=== PATIENT | female | born 1965 | race Caucasian/White ===

== ENCOUNTER 2016-09-13 13:33 | Emergency (ER) | payer MEDICAID ==
[~2016-09-13] VITALS: Ht 154.9 cm; Wt 68.0 kg
[~2016-09-13 13:33] MED LIST: AMARYL2 MG PO; ASPIR 8181 MG PO; ATORVASTATIN CA40 M1 PO; BG MC; CEL20 PO; CIPRO500 MG PO; COL100 PO; DUL5 PO; GLIPIZIDE10 MG PO; GLIPIZIDE5 MG PO; GLU500 PO; GLUCOTROL5 MG PO; KEFLEX250 MG PO; LAC PO; LANTUS SOLOS100 U/M1 SQ; LEVEMIR100 U/M1 SQ; LEVOTHYROXIN0.075 M2 PO; MAC100 PO; METFORMIN HCL1000 MG PO; METFORMIN500 M1 PO; METFORMIN850 M1 PO; NORCO1 TA2 PO; OMEPRAZOLE DR20 M1 PO; PERCOCET1 TA2 PO; PRILOSEC20 MG PO; PROTONIX40 MG PO; PROTONIX40 MG/Pac1 PO; REG5 PO; SYN5 PO; SYNTHROID0.05 MG PO; THERAGRAN-M1 TA4 PO; TYLENOL ARTHRI650 MG PO; UNKNOWN THYROID MED; VITAMIN D50000 I4 PO; ZES10 PO; ZESTRIL5 MG PO; ZOFRAN ODT8 MG PO; [UNRECOGNIZED DRUG - REMARK]
[2016-09-13 16:49] VITALS: BP 129/72
== END 2016-09-13 16:49 | disposition home or self-care (01) ==
LOC: ED 13:33
DX: J02.0 Streptococcal pharyngitis (principal); I10 Essential (primary) hypertension; E11.9 Type 2 diabetes mellitus without complications; E03.9 Hypothyroidism, unspecified; Z79.84 Long term (current) use of oral hypoglycemic drugs; Z79.899 Other long term (current) drug therapy
CPT/HCPCS: J0561; J1885

== ENCOUNTER 2016-12-08 08:42 | Emergency (ER) | payer MEDICAID ==
[~2016-12-08] VITALS: Ht 157.5 cm; Wt 66.4 kg
[2016-12-08 10:58] VITALS: BP 124/68
== END 2016-12-08 10:58 | disposition home or self-care (01) ==
LOC: ED 08:42
DX: N39.0 Urinary tract infection, site not specified (principal); M54.5 Low back pain; E11.9 Type 2 diabetes mellitus without complications; E78.00 Pure hypercholesterolemia, unspecified; Z79.84 Long term (current) use of oral hypoglycemic drugs
CPT/HCPCS: J1885

== ENCOUNTER 2017-01-16 18:51 | Inpatient (IN) | payer MEDICAID ==
[~2017-01-16] VITALS: Ht 165.1 cm; Wt 62.6 kg
[2017-01-16 19:55] LABS: BASOPHIL % 0.4 % (0-2); PLATELET COUNT 286 x10^3mcL (130-400); RED CELL DISTRIBUTION WIDTH 12.9 % (11.5-14.5)
[2017-01-16 19:58] LABS: CALCIUM 9.2 mg/dL (8.5-10.1); CREATININE SERUM 1.2 mg/dL (0.6-1.0); POTASSIUM SERUM 4.1 mmol/L (3.5-5.1)
[2017-01-16 20:02] LABS: ALBUMIN 3.5 g/dL (3.4-5.0); BILIRUBIN TOTAL 0.88 mg/dL (0.20-1.00); TOTAL PROTEIN, SERUM 7.1 g/dL (6.4-8.2)
[2017-01-16 21:41] LABS: microscopic required? YES; urine erythrocyte TRACE (NEGATIVE)
[2017-01-16 21:50] LABS: AMPHETAMINE QUAL UR NONE DETECTED (NEG <=1000)
[2017-01-16 22:39] VITALS: BP 137/70; BP 96/61
[2017-01-16 22:44] VITALS: BP 137/70
[2017-01-17 00:01] LABS: PHOSPHOROUS 2.7 mg/dL (2.5-4.9)
[2017-01-17 00:03] LABS: CHOLESTEROL/HDL RATIO 1.8
[2017-01-17 00:15] LABS: FREE THYROXINE INDEX 2.8 ug/dL (1.4-4.5); T4(THYROXINE) 7.9 ug/dL (4.7-13.3)
[2017-01-17 01:43] LABS: T3 TOTAL 0.73 ng/mL
[2017-01-17 02:21] LABS: BASOPHIL % 1.8 % (0-2); PLATELET COUNT 257 x10^3mcL (130-400); RED CELL DISTRIBUTION WIDTH 12.9 % (11.5-14.5)
[2017-01-17 03:27] LABS: CALCIUM 8.4 mg/dL (8.5-10.1); CARBON DIOXIDE 25.2 mmol/L (21-32); CHLORIDE SERUM 99 mmol/L (98-107); CREATININE SERUM 0.8 mg/dL (0.6-1.0); GFR1 > 60 mL/min; GLUCOSE SERUM 324 mg/dL (74-106); POTASSIUM SERUM 3.8 mmol/L (3.5-5.1); SODIUM SERUM 134 mmol/L (136-145)
[2017-01-17 05:21] VITALS: BP 140/77
[2017-01-17 09:24] VITALS: BP 106/64
[2017-01-17 11:20] VITALS: Ht 165.1 cm; Wt 62.6 kg
[2017-01-17 13:35] VITALS: BP 129/63
[2017-01-17 17:20] VITALS: BP 128/68
[2017-01-17 20:41] VITALS: BP 139/77
[2017-01-17 20:52] VITALS: BP 91/55
[2017-01-18 06:00] VITALS: BP 133/75
[2017-01-18 06:38] LABS: BASOPHIL % 0.7 % (0-2); PLATELET COUNT 268 x10^3mcL (130-400); RED CELL DISTRIBUTION WIDTH 13.9 % (11.5-14.5)
[2017-01-18 06:48] LABS: CALCIUM 8.5 mg/dL (8.5-10.1); CARBON DIOXIDE 27.3 mmol/L (21-32); CHLORIDE SERUM 106 mmol/L (98-107); CREATININE SERUM 0.6 mg/dL (0.6-1.0); GFR1 > 60 mL/min; GLUCOSE SERUM 83 mg/dL (74-106); POTASSIUM SERUM 3.7 mmol/L (3.5-5.1); SODIUM SERUM 140 mmol/L (136-145)
[2017-01-18 09:00] VITALS: BP 117/69
[2017-01-18] MEDS ORDERED: REG10 PO (09:50)
[2017-01-18 10:06] VITALS: BP 117/69
[2017-01-18] MEDS ORDERED: ACCU-CHEK1 EACH MC (11:12)
[2017-01-18] MEDS ORDERED: BG MC (11:12)
[2017-01-18] MEDS ORDERED: LEVEMIR100 U/M1 SC ×2 (11:12→12:03)
== END 2017-01-18 13:07 | disposition home or self-care (01) | DRG 48 ==
LOC: ED 18:51 → DU 21:13
PROVIDERS: Emergency Medicine; Family Medicine; ADMIT Family Medicine
DX: E11.43 Type 2 diabetes mellitus with diabetic autonomic (poly)neuropathy (principal); N17.0 Acute kidney failure with tubular necrosis; E11.65 Type 2 diabetes mellitus with hyperglycemia; E83.42 Hypomagnesemia; E87.1 Hypo-osmolality and hyponatremia; K31.84 Gastroparesis; N39.0 Urinary tract infection, site not specified; I10 Essential (primary) hypertension; D50.9 Iron deficiency anemia, unspecified; E03.9 Hypothyroidism, unspecified; Z68.23 Body mass index [BMI] 23.0-23.9, adult; Z79.4 Long term (current) use of insulin; Z79.82 Long term (current) use of aspirin
CPT/HCPCS: 82962; 83880; 84439; J1815; J2270; J2405; J3475; J3490; J7030; J8597; Q0092

== ENCOUNTER 2017-01-22 11:21 | Emergency (ER) | payer MEDICAID ==
[~2017-01-22] VITALS: Ht 157.5 cm; Wt 62.1 kg
[~2017-01-22 11:21] MED LIST changes: +ACCU-CHEK1 EACH MC; +LEVEMIR100 U/M1 SC; +REG10 PO
[2017-01-22 12:11] LABS: BASOPHIL % 0.2 % (0-2); PLATELET COUNT 335 x10^3mcL (130-400); RED CELL DISTRIBUTION WIDTH 13.9 % (11.5-14.5)
[2017-01-22 12:21] LABS: CALCIUM 8.5 mg/dL (8.5-10.1); CARBON DIOXIDE 26.9 mmol/L (21-32); CREATININE SERUM 1.3 mg/dL (0.6-1.0); POTASSIUM SERUM 4.5 mmol/L (3.5-5.1)
[2017-01-22 12:27] LABS: ALBUMIN 3.7 g/dL (3.4-5.0); BILIRUBIN TOTAL 1.01 mg/dL (0.20-1.00); TOTAL PROTEIN, SERUM 7.3 g/dL (6.4-8.2)
[2017-01-22 15:42] VITALS: BP 143/79
== END 2017-01-22 15:42 | disposition home or self-care (01) ==
LOC: ED 11:21
PROVIDERS: Emergency Medicine
DX: R10.84 Generalized abdominal pain (principal); E11.9 Type 2 diabetes mellitus without complications; E07.9 Disorder of thyroid, unspecified; E78.00 Pure hypercholesterolemia, unspecified; F32.9 Major depressive disorder, single episode, unspecified; Z90.49 Acquired absence of other specified parts of digestive tract; Z79.84 Long term (current) use of oral hypoglycemic drugs
CPT/HCPCS: J2270; J2405; J7030

== ENCOUNTER 2017-01-26 13:10 | Emergency (ER) | payer MEDICAID ==
[2017-01-26 15:24] LABS: BASOPHIL % 0.5 % (0-2); PLATELET COUNT 377 x10^3mcL (130-400); RED CELL DISTRIBUTION WIDTH 13.9 % (11.5-14.5)
[2017-01-26 15:36] LABS: CALCIUM 9.4 mg/dL (8.5-10.1); CARBON DIOXIDE 28.1 mmol/L (21-32); CREATININE SERUM 1.1 mg/dL (0.6-1.0); POTASSIUM SERUM 4.3 mmol/L (3.5-5.1)
[2017-01-26 15:40] LABS: ALBUMIN 3.9 g/dL (3.4-5.0); BILIRUBIN TOTAL 0.9 mg/dL (0.20-1.00); TOTAL PROTEIN, SERUM 7.6 g/dL (6.4-8.2)
[2017-01-26 15:42] LABS: CHOLESTEROL/HDL RATIO 1.8
[2017-01-26 15:49] LABS: T3 TOTAL 0.86 ng/mL
[2017-01-26 15:54] LABS: FREE T4 1.23 ng/dL (0.76-1.46); FREE THYROXINE INDEX 3.4 ug/dL (1.4-4.5); T4(THYROXINE) 10.1 ug/dL (4.7-13.3)
[2017-01-26 16:12] LABS: UA SPECIFIC GRAVITY <=1.005 (1.005-1.035); microscopic required? YES; urine erythrocyte TRACE (NEGATIVE)
[2017-01-26 17:24] VITALS: BP 167/94
== END 2017-01-26 17:24 | disposition home or self-care (01) ==
LOC: ED 13:10
PROVIDERS: Specialist
DX: R10.13 Epigastric pain (principal); E87.1 Hypo-osmolality and hyponatremia; E78.00 Pure hypercholesterolemia, unspecified; Z90.49 Acquired absence of other specified parts of digestive tract; E11.9 Type 2 diabetes mellitus without complications; Z79.84 Long term (current) use of oral hypoglycemic drugs
CPT/HCPCS: 82962; 83880; 84439; J1170; J2405; J3010; J3490; J7030

== ENCOUNTER 2017-01-28 04:08 | Emergency (ER) | payer MEDICAID ==
[2017-01-28 05:30] VITALS: BP 148/88
== END 2017-01-28 05:30 | disposition home or self-care (01) ==
LOC: ED 04:08
DX: R10.13 Epigastric pain (principal); R11.0 Nausea; E11.9 Type 2 diabetes mellitus without complications; E03.9 Hypothyroidism, unspecified; Z90.49 Acquired absence of other specified parts of digestive tract; Z79.84 Long term (current) use of oral hypoglycemic drugs; Z79.899 Other long term (current) drug therapy
CPT/HCPCS: J2270; Q0162

== ENCOUNTER 2017-03-04 07:20 | Emergency (ER) | payer MEDICAID ==
[~2017-03-04] VITALS: Ht 160 cm; Wt 65.5 kg
[2017-03-04 09:43] LABS: CALCIUM 9.1 mg/dL (8.5-10.1); CARBON DIOXIDE 27.2 mmol/L (21-32); CHLORIDE SERUM 109 mmol/L (98-107); CREATININE SERUM 0.8 mg/dL (0.6-1.0); GFR1 > 60 mL/min; GLUCOSE SERUM 101 mg/dL (74-106); POTASSIUM SERUM 5.1 mmol/L (3.5-5.1); SODIUM SERUM 142 mmol/L (136-145)
[2017-03-04 10:39] VITALS: BP 106/64
== END 2017-03-04 11:12 | disposition home or self-care (01) ==
LOC: ED 07:20
PROVIDERS: Emergency Medicine Emergency Medical Services
DX: R79.9 Abnormal finding of blood chemistry, unspecified (principal); E11.9 Type 2 diabetes mellitus without complications; F32.9 Major depressive disorder, single episode, unspecified; E78.00 Pure hypercholesterolemia, unspecified; Z90.89 Acquired absence of other organs
CPT/HCPCS: 36415

== ENCOUNTER 2017-04-27 16:28 | Emergency (ER) | payer MEDICAID ==
[2017-04-27 19:40] LABS: BASOPHIL % 0.3 % (0-2); PLATELET COUNT 205 x10^3mcL (130-400); RED CELL DISTRIBUTION WIDTH 14.2 % (11.5-14.5)
[2017-04-27 19:59] LABS: ALBUMIN 3.6 g/dL (3.4-5.0); ALKALINE PHOSPHATASE 100 U/L (46-116); ALT/SGPT 58 U/L (14-59); AST/SGOT 25 U/L (15-37); BILIRUBIN TOTAL 0.9 mg/dL (0.20-1.00); CALCIUM 9.5 mg/dL (8.5-10.1); CARBON DIOXIDE 22.4 mmol/L (21-32); CHLORIDE SERUM 106 mmol/L (98-107); GFR1 > 60 mL/min; GLUCOSE SERUM 219 mg/dL (74-106); LIPASE 67 IU/L (73-393); POTASSIUM SERUM 3.5 mmol/L (3.5-5.1); SODIUM SERUM 142 mmol/L (136-145); TOTAL PROTEIN, SERUM 7.6 g/dL (6.4-8.2)
[2017-04-27 21:24] VITALS: BP 194/99
== END 2017-04-27 21:24 | disposition home or self-care (01) ==
LOC: ED 16:28
PROVIDERS: Emergency Medicine
DX: R10.11 Right upper quadrant pain (principal); R11.2 Nausea with vomiting, unspecified; E11.9 Type 2 diabetes mellitus without complications; E78.00 Pure hypercholesterolemia, unspecified; F32.9 Major depressive disorder, single episode, unspecified; I10 Essential (primary) hypertension; Z90.89 Acquired absence of other organs
CPT/HCPCS: J2550; J3010; J7030

== ENCOUNTER 2017-04-28 17:02 | Emergency (ER) | payer MEDICAID ==
[~2017-04-28] VITALS: Ht 162.6 cm; Wt 62.6 kg
[2017-04-28 18:03] VITALS: Ht 162.6 cm; Wt 62.6 kg
[2017-04-28 21:48] VITALS: BP 141/108
== END 2017-04-28 21:48 | disposition home or self-care (01) ==
LOC: ED 17:02
DX: G89.29 Other chronic pain (principal); R10.13 Epigastric pain; R11.10 Vomiting, unspecified; I10 Essential (primary) hypertension; E78.00 Pure hypercholesterolemia, unspecified; E07.9 Disorder of thyroid, unspecified; E11.43 Type 2 diabetes mellitus with diabetic autonomic (poly)neuropathy; K31.84 Gastroparesis; Z90.49 Acquired absence of other specified parts of digestive tract
CPT/HCPCS: Q0162

== ENCOUNTER 2018-03-18 08:46 | Emergency (ER) | payer MEDICAID ==
[~2018-03-18] VITALS: Ht 152.4 cm; Wt 86.8 kg
[2018-03-18 08:55] VITALS: Ht 152.4 cm; Wt 86.8 kg
[2018-03-18 10:55] VITALS: BP 125/76
== END 2018-03-18 10:55 | disposition home or self-care (01) ==
LOC: ED 08:46
DX: J02.0 Streptococcal pharyngitis (principal); I10 Essential (primary) hypertension; E11.9 Type 2 diabetes mellitus without complications; F32.9 Major depressive disorder, single episode, unspecified; E78.00 Pure hypercholesterolemia, unspecified; Z90.49 Acquired absence of other specified parts of digestive tract
CPT/HCPCS: 87804; J0561; J1885

== ENCOUNTER 2018-04-14 13:20 | Emergency (ER) | payer MEDICAID ==
[~2018-04-14] VITALS: Ht 165.1 cm; Wt 85.3 kg
[2018-04-14 13:35] VITALS: Ht 165.1 cm; Wt 85.3 kg
[2018-04-14 16:58] VITALS: BP 105/68
== END 2018-04-14 17:10 | disposition home or self-care (01) ==
LOC: ED 13:20
DX: S92.332A Displaced fracture of third metatarsal bone, left foot, initial encounter for closed fracture (principal); S92.342A Displaced fracture of fourth metatarsal bone, left foot, initial encounter for closed fracture; I10 Essential (primary) hypertension; E11.9 Type 2 diabetes mellitus without complications; E78.00 Pure hypercholesterolemia, unspecified; F32.9 Major depressive disorder, single episode, unspecified; Z90.49 Acquired absence of other specified parts of digestive tract; Z98.890 Other specified postprocedural states; W22.8XXA Striking against or struck by other objects, initial encounter; Y93.89 Activity, other specified; Y92.89 Other specified places as the place of occurrence of the external cause; Y99.8 Other external cause status
CPT/HCPCS: J7040; Q0092

== ENCOUNTER 2018-11-15 19:55 | Emergency (ER) | payer MEDICAID ==
[~2018-11-15] VITALS: Ht 152.4 cm; Wt 92.1 kg
[2018-11-15 20:37] VITALS: Ht 152.4 cm; Wt 92.1 kg
[2018-11-15 21:23] LABS: BASOPHIL % 0.2 % (0-2); PLATELET COUNT 224 x10^3mcL (130-400); RED CELL DISTRIBUTION WIDTH 14.2 % (11.5-14.5)
[2018-11-15 21:37] VITALS: BP 127/68
[2018-11-15 21:38] LABS: BILIRUBIN TOTAL 0.39 mg/dL (0.20-1.00); CALCIUM 8.6 mg/dL (8.5-10.1); CARBON DIOXIDE 19.1 mmol/L (21-32); CREATININE SERUM 1.7 mg/dL (0.6-1.0); TOTAL PROTEIN, SERUM 7.1 g/dL (6.4-8.2)
[2018-11-15 21:48] LABS: POTASSIUM SERUM 5.8 mmol/L (3.5-5.1)
== END 2018-11-15 22:45 | disposition left against medical advice (07) ==
LOC: ED 19:55
PROVIDERS: Emergency Medicine
DX: E87.5 Hyperkalemia (principal); R19.7 Diarrhea, unspecified; R10.13 Epigastric pain; E11.65 Type 2 diabetes mellitus with hyperglycemia; I12.9 Hypertensive chronic kidney disease with stage 1 through stage 4 chronic kidney disease, or unspecified chronic kidney disease; N18.9 Chronic kidney disease, unspecified; F32.9 Major depressive disorder, single episode, unspecified; E78.00 Pure hypercholesterolemia, unspecified; Z90.49 Acquired absence of other specified parts of digestive tract
CPT/HCPCS: 36415; 87046; 87046-59

== ENCOUNTER 2018-12-06 21:23 | Emergency (ER) | payer MEDICAID ==
[~2018-12-06] VITALS: Ht 165.1 cm; Wt 94.3 kg
[2018-12-06 21:34] VITALS: Ht 165.1 cm; Wt 94.3 kg
[2018-12-06 22:27] LABS: BASOPHIL % 0 % (0-2); PLATELET COUNT 217 x10^3mcL (130-400); RED CELL DISTRIBUTION WIDTH 14.5 % (11.5-14.5)
[2018-12-06 22:38] LABS: CALCIUM 8.7 mg/dL (8.5-10.1); CARBON DIOXIDE 20.6 mmol/L (21-32); CREATININE SERUM 1.3 mg/dL (0.6-1.0)
[2018-12-06 22:43] LABS: ALBUMIN 3.4 g/dL (3.4-5.0); BILIRUBIN TOTAL 0.95 mg/dL (0.20-1.00); TOTAL PROTEIN, SERUM 7.3 g/dL (6.4-8.2)
[2018-12-07 01:26] VITALS: BP 143/72
== END 2018-12-07 01:26 | disposition home or self-care (01) ==
LOC: ED 21:23
PROVIDERS: Emergency Medicine
DX: N10 Acute pyelonephritis (principal); I10 Essential (primary) hypertension; E11.9 Type 2 diabetes mellitus without complications; E78.00 Pure hypercholesterolemia, unspecified; F32.9 Major depressive disorder, single episode, unspecified; Z98.890 Other specified postprocedural states; Z90.49 Acquired absence of other specified parts of digestive tract
CPT/HCPCS: J0696; J1885; J2405; J7030; J7060

== ENCOUNTER 2018-12-08 20:13 | Emergency (ER) | payer MEDICAID ==
[~2018-12-08] VITALS: Ht 160 cm; Wt 93.0 kg
[2018-12-08 20:35] VITALS: Ht 160 cm; Wt 93.0 kg
[2018-12-08 23:42] LABS: BASOPHIL % 0.1 % (0-2); PLATELET COUNT 201 x10^3mcL (130-400)
[2018-12-08 23:57] LABS: CALCIUM 9.1 mg/dL (8.5-10.1); CARBON DIOXIDE 24.2 mmol/L (21-32); CREATININE SERUM 1.7 mg/dL (0.6-1.0); POTASSIUM SERUM 4.5 mmol/L (3.5-5.1)
[2018-12-08 23:58] LABS: BILIRUBIN TOTAL 0.6 mg/dL (0.20-1.00); RED CELL DISTRIBUTION WIDTH 15.1 % (11.5-14.5); TOTAL PROTEIN, SERUM 7.5 g/dL (6.4-8.2)
[2018-12-09 02:55] VITALS: BP 140/62
== END 2018-12-09 02:55 | disposition home or self-care (01) ==
LOC: ED 20:13
PROVIDERS: Emergency Medicine
DX: R11.2 Nausea with vomiting, unspecified (principal); N12 Tubulo-interstitial nephritis, not specified as acute or chronic; I10 Essential (primary) hypertension; E11.9 Type 2 diabetes mellitus without complications; F32.9 Major depressive disorder, single episode, unspecified; E78.00 Pure hypercholesterolemia, unspecified; Z90.49 Acquired absence of other specified parts of digestive tract
CPT/HCPCS: J2270; J2405

== ENCOUNTER 2019-07-08 20:01 | Inpatient (IN) | payer MEDICAID ==
[~2019-07-08] VITALS: Ht 160 cm; Wt 99.0 kg
[2019-07-08 20:06] VITALS: Ht 160 cm; Wt 99.0 kg
[2019-07-08 21:11] LABS: BASOPHIL % 0.4 % (0-2); PLATELET COUNT 196 x10^3mcL (130-400); RED CELL DISTRIBUTION WIDTH 13.3 % (11.5-14.5)
[2019-07-08 21:25] LABS: CALCIUM 8.3 mg/dL (8.5-10.1); CARBON DIOXIDE 21.9 mmol/L (21-32); CHLORIDE SERUM 103 mmol/L (98-107); GFR1 28 mL/min; GLUCOSE SERUM 280 mg/dL (74-106); POTASSIUM SERUM 4.9 mmol/L (3.5-5.1); SODIUM SERUM 132 mmol/L (136-145)
[2019-07-08 21:30] LABS: ALBUMIN 2.9 g/dL (3.4-5.0); ALKALINE PHOSPHATASE 136 U/L (46-116); ALT/SGPT 18 U/L (14-59); AST/SGOT 17 U/L (15-37); BILIRUBIN TOTAL 1.06 mg/dL (0.20-1.00); TOTAL PROTEIN, SERUM 7.2 g/dL (6.4-8.2)
[2019-07-08 21:43] LABS: UA SPECIFIC GRAVITY 1.025 (1.005-1.035); microscopic required? YES; urine erythrocyte 3+ (NEGATIVE)
[2019-07-08] MEDS ORDERED: HUMALOG100 UNIT/1 SQ (23:04)
[2019-07-08] MEDS ORDERED: LEVEMIR100 U/M1 SC (23:04)
[2019-07-08] MEDS ORDERED: ZOCOR10 MG PO (23:05)
[2019-07-08] MEDS ORDERED: MICROZIDE12.5 MG PO (23:05)
[2019-07-08] MEDS ORDERED: LEVO-T125 MCG PO (23:06)
[2019-07-08] MEDS ORDERED: ZESTRIL20 MG PO (23:06)
[2019-07-08 23:21] LABS: FREE T4 0.83 ng/dL (0.76-1.46)
[2019-07-08 23:27] LABS: FREE THYROXINE INDEX 1.4 ug/dL (1.4-4.5)
[2019-07-09 00:10] VITALS: BP 102/48
[2019-07-09 00:18] LABS: T3 TOTAL 0.83 ng/mL
[2019-07-09 01:15] VITALS: BP 107/56
[2019-07-09 05:45] VITALS: BP 117/60
[2019-07-09 06:37] LABS: BASOPHIL % 0.2 % (0-2); PLATELET COUNT 200 x10^3mcL (130-400); RED CELL DISTRIBUTION WIDTH 13.3 % (11.5-14.5)
[2019-07-09 07:01] LABS: CALCIUM 7.5 mg/dL (8.5-10.1); CARBON DIOXIDE 18.6 mmol/L (21-32); POTASSIUM SERUM 5.2 mmol/L (3.5-5.1)
[2019-07-09 08:00] VITALS: BP 144/64
[2019-07-09 16:23] VITALS: BP 132/60
[2019-07-09 19:35] VITALS: BP 96/48
[2019-07-10 04:36] VITALS: BP 154/63
[2019-07-10 06:56] LABS: BASOPHIL % 0.5 % (0-2); PLATELET COUNT 183 x10^3mcL (130-400); RED CELL DISTRIBUTION WIDTH 13.6 % (11.5-14.5)
[2019-07-10 07:09] LABS: CALCIUM 8.4 mg/dL (8.5-10.1); CARBON DIOXIDE 19.5 mmol/L (21-32); CREATININE SERUM 1.9 mg/dL (0.6-1.0); MAGNESIUM 1.9 mg/dL (1.8-2.4); PHOSPHOROUS 3.4 mg/dL (2.5-4.9); POTASSIUM SERUM 5.5 mmol/L (3.5-5.1)
[2019-07-10 07:33] VITALS: BP 104/42
[2019-07-10 11:24] VITALS: BP 113/44
[2019-07-10 15:51] LABS: CALCIUM 7.7 mg/dL (8.5-10.1); CREATININE SERUM 1.7 mg/dL (0.6-1.0); POTASSIUM SERUM 4.6 mmol/L (3.5-5.1)
[2019-07-10 17:04] VITALS: BP 136/65
[2019-07-10 21:03] VITALS: BP 143/76
[2019-07-11 04:53] VITALS: BP 153/78
[2019-07-11 06:54] LABS: CARBON DIOXIDE 20.1 mmol/L (21-32); CREATININE SERUM 1.1 mg/dL (0.6-1.0); POTASSIUM SERUM 4.9 mmol/L (3.5-5.1)
[2019-07-11 07:36] LABS: BASOPHIL % 0.4 % (0-2); PLATELET COUNT 179 x10^3mcL (130-400)
[2019-07-11 08:55] VITALS: BP 174/82
[2019-07-11] MEDS ORDERED: GLIPIZIDE XL5 M2 PO (12:33)
[2019-07-11] MEDS ORDERED: BACTRIM DS1 TAB PO (12:34)
[2019-07-11 12:39] VITALS: BP 168/671
[2019-07-11] MEDS ORDERED: NORVASC10 MG PO (13:06)
[2019-07-11] MEDS ORDERED: COZAAR25 M1 PO (13:06)
[2019-07-11 13:31] VITALS: BP 168/671
== END 2019-07-11 15:00 | disposition home or self-care (01) | DRG 720 ==
LOC: ED 20:01 → MU 22:26 → DU 22:26 → MU 07-09 00:02 → DU 07-09 00:41 → MU 07-11 11:23
PROVIDERS: Emergency Medicine; Internal Medicine; ADMIT Family Medicine
DX: A41.9 Sepsis, unspecified organism (principal); N17.0 Acute kidney failure with tubular necrosis; N12 Tubulo-interstitial nephritis, not specified as acute or chronic; N39.0 Urinary tract infection, site not specified; E78.5 Hyperlipidemia, unspecified; E03.9 Hypothyroidism, unspecified; F32.9 Major depressive disorder, single episode, unspecified; K21.9 Gastro-esophageal reflux disease without esophagitis; N18.3 Chronic kidney disease, stage 3 (moderate); I12.9 Hypertensive chronic kidney disease with stage 1 through stage 4 chronic kidney disease, or unspecified chronic kidney disease; E11.22 Type 2 diabetes mellitus with diabetic chronic kidney disease; B96.20 Unspecified Escherichia coli [E. coli] as the cause of diseases classified elsewhere; Z79.899 Other long term (current) drug therapy; Z79.82 Long term (current) use of aspirin; Z79.4 Long term (current) use of insulin; Z79.84 Long term (current) use of oral hypoglycemic drugs; Z83.3 Family history of diabetes mellitus
CPT/HCPCS: 82962; 84439; 87804; 97116-GP; G0378; J0696; J1815; J1885; J2185; J2405; J3490; J7030; J7060; Q0092

== ENCOUNTER 2019-11-07 12:33 | Emergency (ER) | payer MEDICAID ==
[~2019-11-07] VITALS: Ht 154.9 cm; Wt 96.2 kg
[~2019-11-07 12:33] MED LIST changes: +BACTRIM DS1 TAB PO; +COZAAR25 M1 PO; +GLIPIZIDE XL5 M2 PO; +HUMALOG100 UNIT/1 SQ; +LEVO-T125 MCG PO; +MICROZIDE12.5 MG PO; +NORVASC10 MG PO; +ZESTRIL20 MG PO; +ZOCOR10 MG PO
[2019-11-07 13:27] VITALS: Ht 154.9 cm; Wt 96.2 kg
[2019-11-07 15:11] VITALS: BP 154/91
== END 2019-11-07 15:11 | disposition home or self-care (01) ==
LOC: ED 12:33
DX: S52.571A Other intraarticular fracture of lower end of right radius, initial encounter for closed fracture (principal); W18.39XA Other fall on same level, initial encounter; Y93.89 Activity, other specified; Y92.89 Other specified places as the place of occurrence of the external cause; Y99.8 Other external cause status
CPT/HCPCS: A4570; Q0092

== ENCOUNTER 2020-03-21 11:27 | Emergency (ER) | payer MEDICAID, SELFPAY ==
[~2020-03-21] VITALS: Ht 154.9 cm; Wt 90.7 kg
[~2020-03-21 11:27] MED LIST changes: +AUGMENTIN 875-1 EACH PO; +TYL325 PO
[2020-03-21 11:35] VITALS: BP 137/73; Ht 154.9 cm; Wt 90.7 kg
== END 2020-03-21 12:35 | disposition home or self-care (01) ==
LOC: ED 11:27
DX: J02.8 Acute pharyngitis due to other specified organisms (principal); I10 Essential (primary) hypertension; E11.9 Type 2 diabetes mellitus without complications; Z20.828 Contact with and (suspected) exposure to other viral communicable diseases; Z90.49 Acquired absence of other specified parts of digestive tract; Z98.890 Other specified postprocedural states
CPT/HCPCS: J1885; U0003